=== PATIENT | female | born 1970 ===

== ENCOUNTER 2020-12-26 17:05 | Emergency (ER) | payer MEDICAID ==
[~2020-12-26] VITALS: Ht 162.6 cm; Wt 61.2 kg
[2020-12-26 17:11] VITALS: BP 116/71
[2020-12-26 17:29] LABS: Urine Bacteria FEW /hpf (None Seen); Urine Blood Negative /uL (Negative); Urine Mucus FEW (None Seen); Urine Specific Gravity 1.028 (1.001-1.035); Urine WBC 1 /hpf (0 - 5)
[2020-12-26 18:10] LABS: Basophils # (auto) 0 10 ^3/uL (0-0.2); Basophils % (auto) 0.7 % (0.0-2.0); Eosinophils # (auto) 0.1 10 ^3/uL (0-0.8); Eosinophils % (auto) 1.8 % (0.0-7.0); Hemoglobin 13.4 g/dL (12.2-16.2); Lymphocytes # (auto) 1.2 10 ^3/uL (0.4-5.4); Lymphocytes % (auto) 22.6 % (10.0-50.0); Mean Corpuscular Hemoglobin 31.5 pg (28.0-32.0); Mean Corpuscular Hgb Conc. 32.7 g/dL (32.0-36.0); Mean Corpuscular Volume 96.5 fL (80.0-100.0); Monocytes # (auto) 0.6 10 ^3/uL (0-1.3); Monocytes % (auto) 10.1 % (0.0-12.0); Neutrophils # (auto) 3.6 10 ^3/uL (1.6-8.6); Neutrophils % (auto) 64.8 % (37.0-80.0); Nucleated Red Blood Cells % 0.1 %; Red Blood Cells 4.25 10^6/uL (4.0-5.20); Red Cell Distribution Width 14.4 % (11.8-14.3); White Blood Cell 5.5 10^3/uL (4.4-10.8)
[2020-12-26 18:41] LABS: Albumin 3.6 g/dL (3.4-5.0); Potassium 3.4 mmol/L (3.5-5.1)
[2020-12-26 19:09] LABS: BUN/Creatinine Ratio 15.1; Bilirubin, Total 0.5 mg/dL (0.2-1.0); Total Protein 7.5 g/dL (6.4-8.2)
[2020-12-26 19:28] LABS: Calcium 9.1 mg/dL (8.5-10.1)
[2020-12-26] MEDS ORDERED: traMADol HCL 50 MG TAB PO ONE (19:45)
== END 2020-12-26 22:25 | disposition left against medical advice (07) ==
LOC: ER 17:05
DX: N39.0 Urinary tract infection, site not specified (principal); Z98.890 Other specified postprocedural states
CPT/HCPCS: 36415; 74176; 80053; 81001; 85025